=== PATIENT | female | born 1960 | race Caucasian/White ===

== ENCOUNTER 2019-12-26 17:23 | Inpatient (IN) | payer MEDICAID ==
[~2019-12-26] VITALS: Ht 162.6 cm; Wt 70.3 kg
[2019-12-26] MEDS ORDERED: TRAZ-252 PO (23:56)
[2019-12-26] MEDS ORDERED: QUET25TA PO (23:56)
[2019-12-26] MEDS ORDERED: VENL-68 PO (23:56)
[2019-12-27] MEDS ORDERED: ZOLPIDEM TARTRATE 10 MG TABLET PO PRN (00:15)
[2019-12-27] MEDS ORDERED: HALOPERIDOL 5 MG TABLET PO PRN (00:15)
[2019-12-27 01:27] VITALS: BP 142/88
[2019-12-27] MEDS ORDERED: ONDANSETRON HCL 4 MG TABLET PO PRN (07:45)
[2019-12-27] MEDS ORDERED: LOPERAMIDE HCL 2 MG CAPSULE PO PRN (07:45)
[2019-12-27] MEDS ORDERED: MAGNESIUM HYDROXIDE SUSPENSION 30 ML UDCUP PO PRN (07:45)
[2019-12-27] MEDS ORDERED: PETROLATUM,WHITE 28 GM JELLY TP PRN (07:45)
[2019-12-27] MEDS ORDERED: NICOTINE 14 MG/24 HOUR PATCH TD PRN (07:45)
[2019-12-27] MEDS ORDERED: ACETAMINOPHEN 325 MG TABLET PO PRN (07:45)
[2019-12-27] MEDS ORDERED: IBUPROFEN 400 MG TABLET PO PRN (07:45)
[2019-12-27] MEDS ORDERED: ALBUTEROL SULFATE HFA 90 MCG/PUFF 8 GM INHALER IH PRN (07:45)
[2019-12-27] MEDS ORDERED: MAG HYDROX/AL HYDROX/SIMETH ES 30 ML SUSPENSION UDCUP PO PRN (07:45)
[2019-12-27] MEDS ORDERED: GuaiFENesin/D-METHORPHAN [SUGAR-FREE] 200-20MG/10 ML SYRUP UDCUP PO PRN (07:45)
[2019-12-27] MEDS ORDERED: DOCUSATE SODIUM 100 MG CAPSULE PO PRN (07:45)
[2019-12-27] MEDS ORDERED: CloNIDine HCL 0.1 MG TABLET PO PRN (07:45)
[2019-12-27 08:18] VITALS: BP 128/77
[2019-12-27] MEDS: DULoxetine HCL 60 MG CAPSULE PO SCH (12:29)
[2019-12-27] MEDS: LORazepam 2 MG TABLET PO PRN ×2 (12:34→20:20)
[2019-12-27 16:08] VITALS: BP 130/86
[2019-12-27] MEDS ORDERED: TraZODone HCL 100 MG TABLET PO SCH (21:00)
[2019-12-27] MEDS ORDERED: QUEtiapine FUMARATE 100 MG TABLET PO SCH (21:00)
[2019-12-28 06:13] VITALS: BP 133/77
[2019-12-28 07:54] LABS: EOSINOPHILS % (AUTO) 0.9 % (1.0-6.0); HEMATOCRIT 40.8 % (36-46); HEMOGLOBIN 13.7 g/dL (12.0-16.0); LYMPHOCYTES # (AUTO) 3.3 K/uL (1.0-4.8); LYMPHOCYTES % (AUTO) 37.7 % (22.0-44.0); MEAN CORPUSCULAR HEMOGLOBIN 31.7 pg (26.0-34.0); MEAN CORPUSCULAR HGB CONC 33.5 G/dL (31.0-37.0); MEAN CORPUSCULAR VOLUME 95 fL (80-100); MONOCYTES # (AUTO) 0.8 K/uL (0.1-1.0); MONOCYTES % (AUTO) 9.3 % (2.0-9.0); NEUTROPHILS # (AUTO) 4.5 K/uL (1.8-7.7); NEUTROPHILS % (AUTO) 51.1 % (40.0-70.0); PLATELET COUNT (AUTO) 229 K/uL (150-450); RED BLOOD CELL COUNT(AUTO) 4.31 MIL/uL (4.00-5.20); RED CELL DISTRIBUTION WIDTH 13.7 % (11.5-14.5)
[2019-12-28 08:11] VITALS: BP 123/79
[2019-12-28 08:23] LABS: ALBUMIN 3.3 g/dL (3.4-5.0); BILIRUBIN,TOTAL 0.4 mg/dL (0.1-1.0); CALCIUM, TOTAL 8.8 mg/dL (8.8-10.5); CHOL/HDL RATIO 6.5 (3.9-5.7); CREATININE 1.05 mg/dL (0.60-1.30); FREE T4 (FREE THYROXINE) 1.13 ng/dL (0.76-1.46); POTASSIUM 3.8 mmol/L (3.5-5.1); THYROID STIMULATING HORMONE 7.57 uIU/mL (0.36-3.74); TOTAL PROTEIN, SERUM 6.3 g/dL (6.4-8.2)
[2019-12-28] MEDS ORDERED: VENLAFAXINE HCL 150 MG ER CAPSULE PO SCH (09:00)
[2019-12-28] MEDS: DULoxetine HCL 60 MG CAPSULE PO SCH (09:00)
[2019-12-28] MEDS ORDERED: QUET100T PO (11:33)
[2019-12-28] MEDS ORDERED: DULO-8 PO (11:33)
[2019-12-28] MEDS ORDERED: TRAZ-257 PO (11:33)
== END 2019-12-28 14:20 | disposition home or self-care (01) | DRG 751 ==
LOC: B2S 12-27 00:05
PROVIDERS: ADMIT Psychiatry & Neurology Child & Adolescent Psychiatry; ATTEND Psychiatry & Neurology Child & Adolescent Psychiatry
DX: F33.2 Major depressive disorder, recurrent severe without psychotic features (principal); F10.10 Alcohol abuse, uncomplicated
CPT/HCPCS: 83036; 84439; 84443